=== PATIENT | male | born 1930 | race Asian ===

== ENCOUNTER 2016-11-30 13:56 | Inpatient (IN) | payer MEDICARE, MEDICAID ==
[~2016-11-30] VITALS: Ht 165.1 cm; Wt 67.1 kg
[2016-11-30 13:56] VITALS: BP 138/61
[2016-11-30 14:21] LABS: BASOPHILS % (AUTO) 1.2 % (0.0-2.0); EOSINOPHILS % (AUTO) 2.3 % (0.0-3.0); LYMPHOCYTES % (AUTO) 21.1 % (20.0-45.0); MEAN CORPUSCULAR HEMOGLOBIN 32.9 PG (27.0-31.0); MEAN CORPUSCULAR HGB CONC 33.8 G/DL (32.0-36.0); MEAN CORPUSCULAR VOLUME 97 FL (80-99); MEAN PLATELET VOLUME 6.2 FL (6.5-10.1); MONOCYTES % (AUTO) 8.7 % (1.0-10.0); NEUTROPHILS % (AUTO) 66.7 % (45.0-75.0); PLATELET COUNT 124 K/UL (150-450); RED BLOOD COUNT 3.68 M/UL (4.70-6.10); RED CELL DISTRIBUTION WIDTH 11.9 % (11.6-14.8); WHITE BLOOD COUNT 7.5 K/UL (4.8-10.8)
[2016-11-30] MEDS ORDERED: GLIPIZIDE5 G1 MC (14:26)
[2016-11-30] MEDS ORDERED: CREON DR 12,001 EACH PO (14:26)
[2016-11-30] MEDS ORDERED: VASCEPA0.5 GM PO (14:26)
[2016-11-30 14:33] LABS: INR 0.9 (0.9-1.1); PROTHROMBIN TIME 9.4 SEC (9.30-11.50)
[2016-11-30 14:37] LABS: ALANINE AMINOTRANSFERASE 11 U/L (3-41); ALBUMIN/GLOBULIN RATIO 1.4 (1.0-2.7); ANION GAP 16 (5-15); ASPARTATE AMINO TRANSFERASE 16 U/L (5-40); CALCIUM 8.9 mg/dL (8.6-10.2); CARBON DIOXIDE 24 mEQ/L (20-30); CHLORIDE 94 mEQ/L (98-107); CREATININE 1.3 mg/dL (0.7-1.2); HEMOLYSIS 2; POTASSIUM 4.4 mEQ/L (3.4-4.9); SODIUM 134 mEQ/L (135-145); TOTAL PROTEIN 7.3 g/dL (6.6-8.7); TROPONIN I < 0.30 ng/mL (<=0.30)
--- NOTE | 2016-11-30 14:44 | Diagnostic Imaging Report ---
Indications: Chest pain Technique: Portable AP chest Findings: Comparison: None Suboptimal inspiration limits evaluation. Linear densities and mildly increased interstitial markings in both mid to lower lung zones. Heart size, pulmonary vasculature within normal limits. Right no obvious pleural abnormalities. Aortic arch mildly calcified. IMPRESSION: Bibasal subsegmental atelectasis and increased interstitial markings, nonspecific, may all be compressive in nature. True interstitial disease, nonspecific, not excludable. Upright PA and lateral chest radiographs with better inspiratory effort and optimal technique recommended for more complete evaluation. Aortosclerosis
[2016-11-30] MEDS ORDERED: Tubing IV Cassette IV ONE ×2 (14:46→18:40)
[2016-11-30 14:48] LABS: CKMB 2.2 ng/mL (< 6.7)
[2016-11-30] MEDS ORDERED: cefTRIAXone 1 GM in NS 55 ML IVPB ONE (15:00)
[2016-11-30] MEDS ORDERED: NS 55 ML IV ONE (15:10)
[2016-11-30] MEDS ORDERED: Tubing IV Secondary IV ONE (15:10)
--- NOTE | 2016-11-30 15:12 | Emergency Room Report ---
History of Present Illness General Chief Complaint: Syncope Source: Patient, EMS Present Illness HPI This patient presents accompanied by his family. The daughter is the primary historian. The patient apparently has fallen twice today. There has not been a loss of consciousness. However, the second episode was witnessed by a neighbor and the history is poor. The patient has no specific complaints. The patient has a history of chronic back pain. He also complains of chronic dry mouth. The patient denies chest pain or shortness of breath. The patient denies abdominal pain. The patient denies fever or chills. Patient denies recent illness. Patient denies headache. Patient denies weakness. He has no other complaints. Allergies: Coded Allergies: No Known Allergies (Unverified , 11/30/16) Patient History Past Medical History: see triage record, DM, HTN, other - HLP Social History: Denies: alcohol use, drug use, smoking Reviewed Nursing Documentation: PMH: Agreed, PSxH: Agreed Nursing Documentation-PMH Past Medical History: No History, Except For Hx Diabetes: Yes Review of Systems All Other Systems: negative except mentioned in HPI Physical Exam Vital Signs Date Time Temp Pulse Resp B/P Pulse Ox O2 Delivery O2 Flow Rate FiO2 11/30/16 13:50 97.9 80 19 142/80 98 Room Air 11/30/16 13:56 2.0 Sp02 EP Interpretation: reviewed, normal General Appearance: no apparent distress, alert, GCS 15, non-toxic Head: normocephalic, atraumatic Eyes: bilateral eye PERRL, bilateral eye normal inspection ENT: hearing grossly normal, normal pharynx, no angioedema, normal voice, dry mucus membranes Neck: full range of motion, supple/symm/no masses Respiratory: chest non-tender, lungs clear, normal breath sounds, no respiratory distress, no retraction, no accessory muscle use, speaking full sentences Cardiovascular #1: regular rate, rhythm, no edema Gastrointestinal: normal bowel sounds, non tender, soft, non-distended, no guarding, no rebound Rectal: deferred Musculoskeletal: back normal, normal range of motion, non-tender Neurologic: alert, oriented x3, responsive, motor strength/tone normal, sensory intact, speech normal Psychiatric: mood/affect normal Skin: normal color, no rash, warm/dry, well hydrated Medical Decision Making Diagnostic Impression: Primary Impression: Pneumonia Additional Impression: Syncope ER Course This patient presents with 2 episodes of fall which could be syncope. The episodes are not well witnessed. Also, the patient is a poor historian. Regardless, the patient is also found to have right lobe opacity that could be a pneumonia. The patient was given broad-spectrum antibiotics here in the emergency department. He is also given IV fluids. Laboratory workup is reassuring and noncontributory other than a mild elevated creatinine. He also is found to have thrombocytopenia that is mild. This patient will be admitted for further evaluation and treatment I am concerned about the patient's age and 2 falls as I feel that he may be dangerous to go home. He is admitted for further evaluation and treatment. Labs Test 11/30/16 14:00 11/30/16 14:10 White Blood Count 7.5 K/UL (4.8-10.8) Red Blood Count 3.68 M/UL (4.70-6.10) Hemoglobin 12.1 G/DL (14.2-18.0) Hematocrit 35.8 % (42.0-52.0) Mean Corpuscular Volume 97 FL (80-99) Mean Corpuscular Hemoglobin 32.9 PG (27.0-31.0) Mean Corpuscular Hemoglobin Concent 33.8 G/DL (32.0-36.0) Red Cell Distribution Width 11.9 % (11.6-14.8) Platelet Count 124 K/UL (150-450) Mean Platelet Volume 6.2 FL (6.5-10.1) Neutrophils (%) (Auto) 66.7 % (45.0-75.0) Lymphocytes (%) (Auto) 21.1 % (20.0-45.0) Monocytes (%) (Auto) 8.7 % (1.0-10.0) Eosinophils (%) (Auto) 2.3 % (0.0-3.0) Basophils (%) (Auto) 1.2 % (0.0-2.0) Prothrombin Time 9.4 SEC (9.30-11.50) Prothromb Time International Ratio 0.9 (0.9-1.1) Activated Partial Thromboplast Time 26 SEC (23-33) Sodium Level 134 mEQ/L (135-145) Potassium Level 4.4 mEQ/L (3.4-4.9) Chloride Level 94 mEQ/L (98-107) Carbon Dioxide Level 24 mEQ/L (20-30) Anion Gap 16 (5-15) Blood Urea Nitrogen 10 mg/dL (7-23) Creatinine 1.3 mg/dL (0.7-1.2) Estimat Glomerular Filtration Rate mL/min (>60) Glucose Level 132 mg/dL (74-106) Calcium Level 8.9 mg/dL (8.6-10.2) Total Bilirubin 0.6 mg/dL (0.0-1.2) Aspartate Amino Transf (AST/SGOT) 16 U/L (5-40) Alanine Aminotransferase (ALT/SGPT) 11 U/L (3-41) Alkaline Phosphatase 96 U/L (40-129) Total Creatine Kinase 90 U/L (38-174) Creatine Kinase MB 2.2 ng/mL (< 6.7) Creatine Kinase MB Relative Index 2.4 Troponin I < 0.30 ng/mL (<=0.30) Total Protein 7.3 g/dL (6.6-8.7) Albumin 4.3 g/dL (3.5-5.2) Globulin 3.0 g/dL Albumin/Globulin Ratio 1.4 (1.0-2.7) EKG Diagnostic Results Rate: normal Rhythm: NSR ST Segments: no acute changes Rhythm Strip Diag. Results EP Interpretation: yes Rate: 90's Rhythm: NSR, no PVC's, no ectopy Chest X-Ray Diagnostic Results Chest X-Ray Ordered: Yes # of Views/Limited/Complete: 1 View Interpretation: no effusion, no pneumothorax, other Indication: Other Impression: Other - RLL opacity Date Electronically Signed: Nov 30, 2016 Time Electronically Signed: 15:08 Interpreting ER Physician: Dominik Last Vital Signs Date Time Temp Pulse Resp B/P Pulse Ox O2 Delivery O2 Flow Rate FiO2 11/30/16 13:56 90 16 138/61 96 Nasal Cannula 2.0 11/30/16 13:50 97.9 Disposition: ADMITTED INPATIENT Condition: Stable LADAN LOPEZ D.O. Nov 30, 2016 15:12
[2016-11-30 15:17] LABS: REFLEX LACTIC ACID YES OR NO YES
--- NOTE | 2016-11-30 15:20 | Diagnostic Imaging Report ---
Indications: Syncope, fall, head trauma, pain Technique: Continuous helical CT imaging of the brain was performed with nonionic exposure control on a Siemens sensation [address] scanner. Axial and coronal images were reconstructed at 5 mm slice thickness and interval. CTDI volume(s): 70 mGy Total DLP: 1404 mGy-cm Findings: Comparison: None Wedge-shaped, peripherally based area of abnormal low attenuation is present in the posterior lateral aspect of the right parietal lobe, extending from the ventricular margin of the brain surface. White matter is mostly involved with some fox matter involvement, some sparing. There is mild expected dilation of the underlying portion of right lateral ventricle. Small circumscribed focus of signal change/parenchymal loss is present in the midline of the dany. Similar lesion is suggested in the right thalamus. Confluent low attenuation is present in the bilateral periventricular white matter. Ventricles, cisterns, and sulci are diffusely prominent. No evidence of mass or hemorrhage, mass effect, midline shift, hydrocephalus, or increased intracranial pressure. Bone window images are unremarkable. Visualized paranasal sinuses and mastoid air cells are clear. 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 Lacunar infarcts dany, possibly also right thalamus, likely old Bilateral cerebral periventricular white matter low attenuation, nonspecific, likely chronic microvascular ischemic in nature Atrophy. The CT scanner at [facility] is accredited by the [employer] and the scans are performed using protocols designed to limit radiation exposure to as low as reasonably achievable to attain images of sufficient resolution adequate for diagnostic evaluation.
[2016-11-30 16:00] VITALS: BP 122/58
[2016-11-30 16:36] LABS: APPEARANCE,URINE CLEAR; KETONES,URINE NEGATIVE (NEGATIVE); LEUKOCYTE ESTERASE ,URINE 1+ (NEGATIVE); NITRITE,URINE NEGATIVE (NEGATIVE); PH,URINE 6 (4.5-8.0); PROTEIN,URINE NEGATIVE (NEGATIVE); UROBILINOGEN,URINE NORMAL MG/DL (0.0-1.0)
[2016-11-30 16:44] LABS: RBC,URINE 0-2 /HPF (0 - 0); WBC,URINE 0-2 /HPF (0 - 0)
[2016-11-30] MEDS ORDERED: Promethazine/Codeine 5ml UD ORAL PRN (17:00)
[2016-11-30] MEDS ORDERED: Nitroglycerin Subl 0.4mg tab (Bottle Of 25) SL PRN (17:00)
[2016-11-30] MEDS ORDERED: DuoNeb 0.5-3(2.5)mg/3ml neb HHN PRN (17:00)
[2016-11-30] MEDS ORDERED: Miralax 17gm pkt ORAL PRN (17:00)
[2016-11-30] MEDS ORDERED: Mylanta II UD 30ml ORAL PRN (17:00)
[2016-11-30 18:00] VITALS: BP 148/63
[2016-11-30] MEDS ORDERED: NS 1000ml 1,900 ML IVLG ONE (18:15)
[2016-11-30] MEDS ORDERED: NS 275 ML ONE (18:40)
[2016-11-30] MEDS ORDERED: Vancomycin 1gm inj IVPB ONE (18:40)
[2016-11-30] MEDS: Vancomycin 1gm/D5W 275ml IVPB SCH ×2 (18:43)
[2016-11-30 20:00] VITALS: BP 137/77
[2016-11-30] MEDS: NovoLOG Insulin Flexpen SUBQ SCH (21:00)
--- NOTE | 2016-11-30 22:10 | History and Physical ---
History of Present Illness General Date patient seen: Nov 30, 2016 Reason for Hospitalization: Syncope Present Illness HPI 86 year old male with hx of HTN, CM, CVA, dementia, presented with CC of falls twice today. There has not been a loss of consciousness. The patient has no specific complaints. The patient has a history of chronic back pain. He also complains of chronic dry mouth. The patient denies chest pain or shortness of breath. Pt is admitted to telemetry for acute encephalopathy to rule out arrhythmias and CVA. Allergies: Coded Allergies: No Known Allergies (Unverified , 11/30/16) Medication History Miscellaneous Medications Glipizide (Glipizide), Unknown Dose MC, (Reported) Icosapent Ethyl (Vascepa), Unknown Dose PO, (Reported) Lipase/Protease/Amylase (Creon Dr 12,000 Units Capsule), 1 EACH PO, (Reported) Patient History Healthcare decision maker Resuscitation status Advanced Directive on File Past Medical/Surgical History Past Medical/Surgical History: (1) History of CVA (cerebrovascular accident) (2) Diabetes Review of Systems Constitutional: Reports: malaise, weakness Musculoskeletal: Reports: back pain All Other Systems: negative except mentioned in HPI Physical Exam General Appearance: cachetic Lines, tubes and drains: peripheral HEENT: normocephalic, anicteric Neck: non-tender, normal alignment Respiratory/Chest: chest wall non-tender, lungs clear Cardiovascular/Chest: normal peripheral pulses, normal rate Abdomen: normal bowel sounds, non tender Genitourinary/Rectal: normal genital exam Extremities: normal range of motion 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, no motor/sensory deficits Last 24 Hour Vital Signs Date Time Temp Pulse Resp B/P Pulse Ox O2 Delivery O2 Flow Rate FiO2 11/30/16 20:00 97.5 75 18 137/77 98 Nasal Cannula 2.0 11/30/16 19:39 97.9 71 16 148/63 100 Nasal Cannula 2.0 28 11/30/16 18:14 76 16 100 Nasal Cannula 2.0 28 11/30/16 18:08 76 18 100 Nasal Cannula 2.0 28 11/30/16 18:08 76 18 Nasal Cannula 2.0 28 11/30/16 18:00 71 16 148/63 99 Nasal Cannula 2.0 11/30/16 16:00 80 16 122/58 95 Nasal Cannula 2.0 11/30/16 13:56 90 16 138/61 96 Nasal Cannula 2.0 11/30/16 13:50 97.9 80 19 142/80 98 Room Air Laboratory Tests Test 11/30/16 14:00 11/30/16 14:10 11/30/16 16:00 11/30/16 18:20 Lactic Acid Level 3.10 mmol/L (0.66-2.22) H 3.20 mmol/L (0.66-2.22) H White Blood Count 7.5 K/UL (4.8-10.8) Red Blood Count 3.68 M/UL (4.70-6.10) L Hemoglobin 12.1 G/DL (14.2-18.0) L Hematocrit 35.8 % (42.0-52.0) L Mean Corpuscular Volume 97 FL (80-99) Mean Corpuscular Hemoglobin 32.9 PG (27.0-31.0) H Mean Corpuscular Hemoglobin Concent 33.8 G/DL (32.0-36.0) Red Cell Distribution Width 11.9 % (11.6-14.8) Platelet Count 124 K/UL (150-450) L Mean Platelet Volume 6.2 FL (6.5-10.1) L Neutrophils (%) (Auto) 66.7 % (45.0-75.0) Lymphocytes (%) (Auto) 21.1 % (20.0-45.0) Monocytes (%) (Auto) 8.7 % (1.0-10.0) Eosinophils (%) (Auto) 2.3 % (0.0-3.0) Basophils (%) (Auto) 1.2 % (0.0-2.0) Prothrombin Time 9.4 SEC (9.30-11.50) Prothromb Time International Ratio 0.9 (0.9-1.1) Activated Partial Thromboplast Time 26 SEC (23-33) Sodium Level 134 mEQ/L (135-145) L Potassium Level 4.4 mEQ/L (3.4-4.9) Chloride Level 94 mEQ/L (98-107) L Carbon Dioxide Level 24 mEQ/L (20-30) Anion Gap 16 (5-15) H Blood Urea Nitrogen 10 mg/dL (7-23) Creatinine 1.3 mg/dL (0.7-1.2) H Estimat Glomerular Filtration Rate mL/min (>60) Glucose Level 132 mg/dL (74-106) H Calcium Level 8.9 mg/dL (8.6-10.2) Total Bilirubin 0.6 mg/dL (0.0-1.2) Aspartate Amino Transf (AST/SGOT) 16 U/L (5-40) Alanine Aminotransferase (ALT/SGPT) 11 U/L (3-41) Alkaline Phosphatase 96 U/L (40-129) Total Creatine Kinase 90 U/L (38-174) Creatine Kinase MB 2.2 ng/mL (< 6.7) Creatine Kinase MB Relative Index 2.4 Troponin I < 0.30 ng/mL (<=0.30) Total Protein 7.3 g/dL (6.6-8.7) Albumin 4.3 g/dL (3.5-5.2) Globulin 3.0 g/dL Albumin/Globulin Ratio 1.4 (1.0-2.7) Urine Color Pale yellow Urine Appearance Clear Urine pH 6 (4.5-8.0) Urine Specific [place] 1.010 (1.005-1.035) Urine Protein Negative (NEGATIVE) Urine Glucose (UA) Negative (NEGATIVE) Urine Ketones Negative (NEGATIVE) Urine Occult Blood Negative (NEGATIVE) Urine Nitrite Negative (NEGATIVE) Urine Bilirubin Negative (NEGATIVE) Urine Urobilinogen Normal MG/DL (0.0-1.0) Urine Leukocyte Esterase 1+ (NEGATIVE) H Urine RBC 0-2 /HPF (0 - 0) H Urine WBC 0-2 /HPF (0 - 0) Urine Squamous Epithelial Cells None /LPF (NONE/OCC) Urine Bacteria None /HPF (NONE) Height (Feet): 5 Height (Inches): 7.00 Weight (Pounds): 138 Medications Current Medications Medications (Trade) Dose Ordered Sig/Morgan Route PRN Reason Start Time Stop Time Status Last Admin Dose Admin Acetaminophen (Tylenol) 650 mg Q4H PRN ORAL fever 11/30/16 17:00 12/30/16 16:59 Al Hydroxide/Mg Hydroxide (Mylanta II) 30 ml Q6H PRN ORAL dyspepsia 11/30/16 17:00 12/30/16 16:59 Albuterol/ Ipratropium 3 ml 3 ml EVERY 4 HOURS PRN HHN Shortness of Breath 11/30/16 17:00 12/05/16 16:59 11/30/16 18:12 Cefepime HCl/ Dextrose (Maxipime/D5W) 55 ml @ 110 mls/hr Q24H IV 11/30/16 21:00 12/07/16 20:59 Dextrose STAT PRN IV Hypoglycemia 11/30/16 17:00 12/30/16 16:59 Heparin Sodium (Porcine) (Heparin 5000 units/ml) 5,000 units EVERY 12 HOURS SUBQ 11/30/16 21:00 12/30/16 20:59 Insulin Aspart (NovoLOG) BEFORE MEALS AND HS SUBQ 11/30/16 21:00 12/30/16 20:59 Nitroglycerin (Ntg) 0.4 mg Q5M PRN SL Prn Chest Pain 11/30/16 17:00 12/30/16 16:59 Ondansetron HCl (Zofran) 4 mg Q6H PRN IVP Nausea & Vomiting 11/30/16 17:00 12/30/16 16:59 Polyethylene Glycol (Miralax) 17 gm DAILYPRN PRN ORAL Constipation 11/30/16 17:00 12/30/16 16:59 Promethazine HCl/ Codeine (Phenergan with Codeine) 5 ml Q4H PRN ORAL For Cough 11/30/16 17:00 12/30/16 16:59 Temazepam (Restoril) 15 mg HSPRN PRN ORAL Insomnia 11/30/16 17:00 12/07/16 16:59 Vancomycin HCl (Vanco rx to dose) 1 ea DAILY PRN MISC Per rx protocol 11/30/16 17:00 12/30/16 16:59 Vancomycin HCl/ Dextrose (Vancomycin/D5W) 275 ml @ 183.708 mls/hr Q24H IVPB 11/30/16 18:00 12/05/16 17:59 11/30/16 18:43 Assessment/Plan Problem List: (1) Acute encephalopathy ICD Codes: G93.40 - Encephalopathy, unspecified SNOMED: 9222934 (2) Arrhythmia ICD Codes: I49.9 - Cardiac arrhythmia, unspecified SNOMED: 953650655 (3) Syncope ICD Codes: R55 - Syncope and collapse SNOMED: 379591099 (4) Diabetes ICD Codes: E11.9 - Type 2 diabetes mellitus without complications SNOMED: 28760611 (5) History of CVA (cerebrovascular accident) ICD Codes: Z86.73 - Personal history of transient ischemic attack (TIA), and cerebral infarction without residual deficits SNOMED: 943102870 Assessment/Plan telemetry monitoring pt/ot swallow evaluation close neuro f/u pain control echo doppler of carotid artery dvt prophylaxis JEEVAN NESS Nov 30, 2016 22:10
[2016-11-30] MEDS: Cefepime HCl 1 GM in D5W 55 ML IV SCH (22:24)
[2016-11-30] MEDS: Heparin 5000 units/ml inj SUBQ SCH (22:26)
[2016-12-01] VITALS: BP 122/66
[2016-12-01 04:01] VITALS: BP 116/64
[2016-12-01] MEDS: NovoLOG Insulin Flexpen SUBQ SCH ×4 (06:30→21:06)
[2016-12-01 08:08] LABS: BASOPHILS % (AUTO) 1.4 % (0.0-2.0); EOSINOPHILS % (AUTO) 2.8 % (0.0-3.0); MEAN CORPUSCULAR HEMOGLOBIN 32.8 PG (27.0-31.0); MEAN CORPUSCULAR HGB CONC 33.4 G/DL (32.0-36.0); MEAN CORPUSCULAR VOLUME 98 FL (80-99); MEAN PLATELET VOLUME 7.2 FL (6.5-10.1); MONOCYTES % (AUTO) 11.6 % (1.0-10.0); NEUTROPHILS % (AUTO) 59.3 % (45.0-75.0); PLATELET COUNT 119 K/UL (150-450); RED BLOOD COUNT 3.62 M/UL (4.70-6.10); RED CELL DISTRIBUTION WIDTH 12.1 % (11.6-14.8); WHITE BLOOD COUNT 5.6 K/UL (4.8-10.8)
[2016-12-01 08:23] VITALS: BP 111/57
[2016-12-01 08:24] LABS: ANION GAP 15 (5-15); CALCIUM 8.4 mg/dL (8.6-10.2); CARBON DIOXIDE 24 mEQ/L (20-30); CHLORIDE 105 mEQ/L (98-107); CREATININE 1.1 mg/dL (0.7-1.2); HEMOLYSIS 6; PHOSPHORUS 2.8 mg/dL (2.5-4.8); POTASSIUM 4.4 mEQ/L (3.4-4.9); SODIUM 144 mEQ/L (135-145)
[2016-12-01] MEDS: Heparin 5000 units/ml inj SUBQ SCH ×2 (08:44→21:00)
--- NOTE | 2016-12-01 11:33 | Pulmonology Progress Note ---
Assessment/Plan Problems: (1) Acute encephalopathy (2) Arrhythmia (3) Syncope (4) Diabetes (5) History of CVA (cerebrovascular accident) (6) Severe protein-calorie malnutrition Assessment/Plan swallow study noted check echo, carotid doppler pt/ot resume diet pain control anemia w/u ( ordered) Subjective ROS Limited/Unobtainable: No Constitutional: Reports: no symptoms HEENT: Repors: no symptoms Respiratory: Reports: no symptoms Allergies: Coded Allergies: No Known Allergies (Unverified , 11/30/16) Objective Last 24 Hour Vital Signs Date Time Temp Pulse Resp B/P Pulse Ox O2 Delivery O2 Flow Rate FiO2 12/01/16 08:23 97.3 65 18 111/57 98 Nasal Cannula 98.0 12/01/16 08:00 72 12/01/16 04:01 97.0 70 20 116/64 100 Nasal Cannula 2.0 12/01/16 04:00 65 12/01/16 00:00 69 12/01/16 00:00 96.9 70 18 122/66 99 Nasal Cannula 2.0 11/30/16 20:00 97.5 75 18 137/77 98 Nasal Cannula 2.0 11/30/16 19:39 97.9 71 16 148/63 100 Nasal Cannula 2.0 28 11/30/16 18:14 76 16 100 Nasal Cannula 2.0 28 11/30/16 18:08 76 18 100 Nasal Cannula 2.0 28 11/30/16 18:08 76 18 Nasal Cannula 2.0 28 11/30/16 18:00 71 16 148/63 99 Nasal Cannula 2.0 11/30/16 16:00 80 16 122/58 95 Nasal Cannula 2.0 11/30/16 13:56 90 16 138/61 96 Nasal Cannula 2.0 11/30/16 13:50 97.9 80 19 142/80 98 Room Air Intake and Output 11/30/16 12/01/16 19:00 07:00 Intake Total 1055 ml 55 ml Output Total 900 ml Balance 1055 ml -845 ml Intake Oral 0 ml IV Total 1055 ml 55 ml Output Urine Total 900 ml # Voids 4 General Appearance: cachetic HEENT: normocephalic, atraumatic Respiratory/Chest: chest wall non-tender, lungs clear Cardiovascular: normal peripheral pulses, normal rate Abdomen: normal bowel sounds, soft, non tender Genitourinary: normal external genitalia Extremities: no cyanosis Skin: no rash 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, no motor/sensory deficits Lymphatic: no neck adenopathy Laboratory Tests 11/30/16 14:00: Lactic Acid Level 3.10H 11/30/16 14:10: White Blood Count 7.5, Red Blood Count 3.68L, Hemoglobin 12.1L, Hematocrit 35.8L , Mean Corpuscular Volume 97, Mean Corpuscular Hemoglobin 32.9H, Mean Corpuscular Hemoglobin Concent 33.8, Red Cell Distribution Width 11.9, Platelet Count 124L, Mean Platelet Volume 6.2L, Neutrophils (%) (Auto) 66.7, Lymphocytes (%) (Auto) 21.1, Monocytes (%) (Auto) 8.7, Eosinophils (%) (Auto) 2.3, Basophils (%) (Auto) 1.2, Prothrombin Time 9.4, Prothromb Time International Ratio 0.9, Activated Partial Thromboplast Time 26, Sodium Level 134L, Potassium Level 4.4, Chloride Level 94L, Carbon Dioxide Level 24, Anion Gap 16H, Blood Urea Nitrogen 10, Creatinine 1.3H, Estimat Glomerular Filtration Rate , Glucose Level 132H, Calcium Level 8.9, Total Bilirubin 0.6, Aspartate Amino Transf (AST/ SGOT) 16, Alanine Aminotransferase (ALT/SGPT) 11, Alkaline Phosphatase 96, Total Creatine Kinase 90, Creatine Kinase MB 2.2, Creatine Kinase MB Relative Index 2.4, Troponin I < 0.30, Total Protein 7.3, Albumin 4.3, Globulin 3.0, Albumin/Globulin Ratio 1.4 11/30/16 16:00: Urine Color Pale yellow, Urine Appearance Clear, Urine pH 6, Urine Specific [place] 1.010, Urine Protein Negative, Urine Glucose (UA) Negative, Urine Ketones Negative, Urine Occult Blood Negative, Urine Nitrite Negative, Urine Bilirubin Negative, Urine Urobilinogen Normal, Urine Leukocyte Esterase 1+H, Urine RBC 0-2H, Urine WBC 0-2, Urine Squamous Epithelial Cells None, Urine Bacteria None 11/30/16 18:20: Lactic Acid Level 3.20H 12/01/16 06:50: White Blood Count 5.6, Red Blood Count 3.62L, Hemoglobin 11.9L, Hematocrit 35.5L , Mean Corpuscular Volume 98, Mean Corpuscular Hemoglobin 32.8H, Mean Corpuscular Hemoglobin Concent 33.4, Red Cell Distribution Width 12.1, Platelet Count 119L, Mean Platelet Volume 7.2, Neutrophils (%) (Auto) 59.3, Lymphocytes ( %) (Auto) 25.0, Monocytes (%) (Auto) 11.6H, Eosinophils (%) (Auto) 2.8, Basophils (%) (Auto) 1.4, Sodium Level 144#, Potassium Level 4.4, Chloride Level 105, Carbon Dioxide Level 24, Anion Gap 15, Blood Urea Nitrogen 10, Creatinine 1.1, Estimat Glomerular Filtration Rate , Glucose Level 100, Calcium Level 8.4L, Phosphorus Level 2.8, Albumin 3.6 Current Medications Medications (Trade) Dose Ordered Sig/Morgan Route PRN Reason Start Time Stop Time Status Last Admin Dose Admin Acetaminophen (Tylenol) 650 mg Q4H PRN ORAL fever 11/30/16 17:00 12/30/16 16:59 11/30/16 22:25 Al Hydroxide/Mg Hydroxide (Mylanta II) 30 ml Q6H PRN ORAL dyspepsia 11/30/16 17:00 12/30/16 16:59 Albuterol/ Ipratropium 3 ml 3 ml EVERY 4 HOURS PRN HHN Shortness of Breath 11/30/16 17:00 12/05/16 16:59 11/30/16 18:12 Cefepime HCl/ Dextrose (Maxipime/D5W) 55 ml @ 110 mls/hr Q24H IV 11/30/16 21:00 12/07/16 20:59 11/30/16 22:24 Dextrose STAT PRN IV Hypoglycemia 11/30/16 17:00 12/30/16 16:59 Heparin Sodium (Porcine) (Heparin 5000 units/ml) 5,000 units EVERY 12 HOURS SUBQ 11/30/16 21:00 12/30/16 20:59 11/30/16 22:26 Insulin Aspart (NovoLOG) BEFORE MEALS AND HS SUBQ 11/30/16 21:00 12/30/16 20:59 Nitroglycerin (Ntg) 0.4 mg Q5M PRN SL Prn Chest Pain 11/30/16 17:00 12/30/16 16:59 Ondansetron HCl (Zofran) 4 mg Q6H PRN IVP Nausea & Vomiting 11/30/16 17:00 12/30/16 16:59 Polyethylene Glycol (Miralax) 17 gm DAILYPRN PRN ORAL Constipation 11/30/16 17:00 12/30/16 16:59 Promethazine HCl/ Codeine (Phenergan with Codeine) 5 ml Q4H PRN ORAL For Cough 11/30/16 17:00 12/30/16 16:59 Temazepam (Restoril) 15 mg HSPRN PRN ORAL Insomnia 11/30/16 17:00 12/07/16 16:59 Vancomycin HCl (Vanco rx to dose) 1 ea DAILY PRN MISC Per rx protocol 11/30/16 17:00 12/30/16 16:59 Vancomycin HCl/ Dextrose (Vancomycin/D5W) 275 ml @ 183.708 mls/hr Q24H IVPB 11/30/16 18:00 12/05/16 17:59 11/30/16 18:43 JEEVAN NESS Dec 01, 2016 11:33
[2016-12-01 11:53] VITALS: BP 119/66
--- NOTE | 2016-12-01 12:53 | Consultation ---
Consult Note Consult Note ID Dic# [id number] KAROLINA LEAVITT M.D. Dec 01, 2016 12:53
--- NOTE | 2016-12-01 15:06 | Cardiology Report ---
APPROVED REPORT EKG Measurement Heart [id number] Normal sinus rhythm Left axis deviation Abnormal ECG
[2016-12-01 15:59] VITALS: BP 126/68
[2016-12-01] MEDS: Vancomycin 1gm/D5W 275ml IVPB SCH ×2 (17:15)
[2016-12-01 20:00] VITALS: BP 139/79
[2016-12-01] MEDS: Cefepime HCl 1 GM in D5W 55 ML IV SCH (21:05)
--- NOTE | 2016-12-01 21:38 | Cardiology Progress Note ---
Assessment/Plan Assessment/Plan The patient is seen and examined, full consult note is dictated. Objective Last 24 Hour Vital Signs Date Time Temp Pulse Resp B/P Pulse Ox O2 Delivery O2 Flow Rate FiO2 12/01/16 20:00 97.7 80 20 139/79 99 Room Air 12/01/16 16:00 78 12/01/16 15:59 97.5 75 18 126/68 99 Room Air 12/01/16 12:00 68 12/01/16 11:53 97.7 72 18 119/66 99 Nasal Cannula 2.0 12/01/16 08:23 97.3 65 18 111/57 98 Nasal Cannula 98.0 12/01/16 08:00 72 12/01/16 04:01 97.0 70 20 116/64 100 Nasal Cannula 2.0 12/01/16 04:00 65 12/01/16 00:00 69 12/01/16 00:00 96.9 70 18 122/66 99 Nasal Cannula 2.0 Intake and Output 11/30/16 12/01/16 19:00 07:00 Intake Total 1055 ml 55 ml Output Total 900 ml Balance 1055 ml -845 ml Intake Oral 0 ml IV Total 1055 ml 55 ml Output Urine Total 900 ml # Voids 4 Laboratory Tests Test 12/01/16 06:50 White Blood Count 5.6 K/UL (4.8-10.8) Red Blood Count 3.62 M/UL (4.70-6.10) L Hemoglobin 11.9 G/DL (14.2-18.0) L Hematocrit 35.5 % (42.0-52.0) L Mean Corpuscular Volume 98 FL (80-99) Mean Corpuscular Hemoglobin 32.8 PG (27.0-31.0) H Mean Corpuscular Hemoglobin Concent 33.4 G/DL (32.0-36.0) Red Cell Distribution Width 12.1 % (11.6-14.8) Platelet Count 119 K/UL (150-450) L Mean Platelet Volume 7.2 FL (6.5-10.1) Neutrophils (%) (Auto) 59.3 % (45.0-75.0) Lymphocytes (%) (Auto) 25.0 % (20.0-45.0) Monocytes (%) (Auto) 11.6 % (1.0-10.0) H Eosinophils (%) (Auto) 2.8 % (0.0-3.0) Basophils (%) (Auto) 1.4 % (0.0-2.0) Sodium Level 144 mEQ/L (135-145) # Potassium Level 4.4 mEQ/L (3.4-4.9) Chloride Level 105 mEQ/L (98-107) Carbon Dioxide Level 24 mEQ/L (20-30) Anion Gap 15 (5-15) Blood Urea Nitrogen 10 mg/dL (7-23) Creatinine 1.1 mg/dL (0.7-1.2) Estimat Glomerular Filtration Rate mL/min (>60) Glucose Level 100 mg/dL (74-106) Calcium Level 8.4 mg/dL (8.6-10.2) L Phosphorus Level 2.8 mg/dL (2.5-4.8) Albumin 3.6 g/dL (3.5-5.2) DAT HERNANDEZ Dec 01, 2016 21:38
--- NOTE | 2016-12-01 23:00 | Consultation ---
DATE OF CONSULTATION: 12/01/2016 NEUROLOGICAL CONSULTATION CONSULTING PHYSICIAN: Alvino Bernard M.D. REFERRING PHYSICIAN: Abeba Hobson M.D. HISTORY OF PRESENT ILLNESS: This is an 86-year-old man, seen in neurological consultation to evaluate episode of recurrent falls. According to the patient, he has a chronic low back pain, but progressed last week. He was using in the past cane, but in the last couple of days, he was not using cane and on one occasion, as he was ambulating, his legs buckled up and he fell down without any loss of consciousness and without associated symptoms. No chest pain. No palpitations. The patient was brought to this facility being described that he had actually had two falls without loss of consciousness and was admitted for assessment of possible arrhythmia or stroke. His vital signs on admission were stable. Blood pressure 137/77 and temperature 97.5 degrees. Laboratory work was obtained. Mild anemia. Hemoglobin 12.1 and hematocrit 35.6. Coagulation panel was normal. Urinalysis was unremarkable. Chemistry panel revealed elevated lactic acid of 3.10, chloride down to 94, anion gap of 16, creatinine 1.3, and blood sugar 132. Imaging studies included CAT scan of the brain without contrast, which revealed a wedge-shaped attenuation in the posterior lateral aspect of right parietal lobe extending from ventricular margin, mild dilation of underlying lateral ventricle, parenchymal loss in the midline of dany suggestive as well as right thalamus, diffusely dilated ventricles, and bilateral periventricular white matter changes. There is no evidence of acute injury noted, but right parietal infarct could have been subacute to chronic in the age, multiple lacunar strokes of old. His chest x-ray revealed bibasilar subsegmental atelectasis, nonspecific. Following admission to present, he remained stable. PAST MEDICAL HISTORY: The patient has history of diabetes, benign prostatic hypertrophy, and hypertension. MEDICATIONS: His treatment included glipizide, , and Creon. ALLERGIES: None reported. SOCIAL HISTORY: He is single. Lives alone in apartment. Denies alcohol or drug abuse. Nonsmoker. FAMILY HISTORY: Noncontributory. REVIEW OF SYSTEMS: Constant discomfort in his low back region especially when he is lying down, weakness in both lower extremities, using cane for ambulation, but denies headache and dizziness. No visual or hearing abnormalities. Denies currently any chest pain, palpitations, or respiratory problems. PHYSICAL EXAMINATION: GENERAL: This is a well-developed and well-nourished elderly man, not in acute distress, lying comfortably in bed, somewhat uncomfortable, changing position frequently, and complaining of low back discomfort. The patient now informs me that he is scheduled now for MRI of lumbar spine by his family physician. VITAL SIGNS: Now stable. He is afebrile. HEENT: Head, normocephalic. No evidence of trauma. Eyes, ears, and throat are clear. NECK: Supple. No meningeal signs. MUSCULOSKELETAL EXAMINATION: Unremarkable. There are no deformities. There is no percussion tenderness in the cervical dorsal lumbar spine. Straight leg raising test negative. EXTREMITIES: Upper and lower extremities without clubbing, cyanosis, or edema. Peripheral pulses 1+ symmetric. MENTAL STATUS: The patient is alert and oriented x3. Poor historian, but speech is fluent. Speaks predominantly Irish. The history was obtained with the help of Irish-speaking nursing staff. The patient was able to follow commands. He was complaining that everyone looks for his heart problems while his issue is low back. CRANIAL NERVE II: Pupils both responding to light and accommodation. Extraocular movement intact. No nystagmus. CRANIAL NERVE V: Normal corneal responses. CRANIAL NERVE VII: No facial asymmetry. CRANIAL NERVE VIII: Normal hearing. CRANIAL NERVES IX THROUGH XII: Tongue is in midline. Symmetric palate elevation. MOTOR EXAMINATION: Normal muscle tone. Strength 5/5 in all extremities. No involuntary movement. Deep tendon reflexes 1+ symmetric with downgoing toes on both sides. SENSORY EXAM: Normal to pinprick and light touch. GAIT: Slow, somewhat wobbly with turns. IMPRESSION: 1. History of recurrent mechanical fall. Rule out syncope. 2. History of subacute right parietal ischemic stroke. 3. Extensive ischemic cerebrovascular disease. 4. Multiple lacunar strokes, old. 5. Abnormal gait, probably contributed by old lacunar strokes and low back pain. 6. Chronic low back pain. Rule out lumbar spinal stenosis. RECOMMENDATIONS: 1. The patient is scheduled for MRI of lumbosacral spine as outpatient. 2. The patient to complete his cardiac assessment. 3. Start on aspirin 81 mg, start on statins, and have a trial of nonsteroidal agents for lumbar spine pain, which will be further worked up as outpatient. Thank you for allowing me to see this interesting patient in neurological consultation. Alvino Kelin Bernard DR: TOMAS JOB#: [id number] CC:
--- NOTE | 2016-12-01 23:15 | Consultation ---
DATE OF CONSULTATION: INFECTIOUS DISEASE CONSULTATION: REFERRING PHYSICIAN: Abeba Hobson M.D. REASON FOR CONSULTATION: Evaluation of patient for pneumonia. HISTORY OF PRESENT ILLNESS: The patient is an 86-year-old male with multiple medical problems was admitted to this medical center after the patient had a syncopal episode. concerned for possible sepsis . The patient is on IV antibiotics. Infectious Disease consultation has been requested for further evaluation of the patient's for possible sepsis and need for antibiotic treatment. PAST MEDICAL HISTORY: 1. History of hypertension. 2. History of BPH. 3. History of diabetes. 4. History of CVA. 5. Cardiomyopathy. ALLERGIES: No known drug allergies. SOCIAL HISTORY: No history of drug abuse. FAMILY HISTORY: Not contributing. REVIEW OF SYSTEMS: Limited information was obtained as mentioned above. PHYSICAL EXAMINATION: VITAL SIGNS: Temperature is 97.1 degrees, blood pressure ____/68, pulse 86, and respiratory rate 18. HEENT: Mild pale conjunctivae. No icterus. NECK: No lymphadenopathy. CHEST: Clear. HEART: S1 and S2. ABDOMEN: Soft . EXTREMITIES: No cyanosis. NEUROLOGIC: Awake. LABORATORY AND DIAGNOSTIC DATA: WBC 5.6, hemoglobin 11.9, and platelets 119,000. UA unremarkable. BUN 10 and creatinine 1.1. Lactic acid 3.2. Liver function test unremarkable. Chest x-ray marking nonspecific. Head CT, no evidence of acute process. The patient has history of old CVA. ASSESSMENT: The patient is an 86-year-old male who came with syncopal episode. The patient was found to have lactic acidosis. Based on the exam, there is no evidence of infectious process, however, lactic acidosis is concerning. The patient may benefit from empiric antibiotics. We will get further information from the cultures. PLAN: 1. We will continue the patient on vancomycin and cefepime day #1. 2. Monitor CBC. 3. Monitor BMP. 4. Monitor cultures (sputum, urine, and blood). 5. Monitor chest x-ray. 6. Based on the patient's clinical course and labs, we will do further recommendation. 7. If the patient stays stable, we may stop antibiotics soon. Thank you, Dr. Hobson, for allowing me to participate in the care of this patient. I will follow the patient with you during this hospitalization. Allan Null M.D. DR: Sakshi JOB#: [id number] CC:
[2016-12-02] VITALS: BP 148/75
--- NOTE | 2016-12-02 01:00 | Consultation ---
DATE OF CONSULTATION: 12/01/2016 CARDIOLOGY CONSULTATION REFERRING PHYSICIAN: Abeba Hobson M.D. REASON FOR CONSULTATION: Management of syncope. HISTORY OF PRESENT ILLNESS: The patient is a very unfortunate 86-year-old gentleman, who was brought in by daughter for evaluation and management of two consecutive falls. Apparently, the first fall was a mechanical fall and the second one is questionable and doubtful for syncope. The patient on the time of arrival to this hospital did not have any chest pain or shortness of breath. However, obtaining the history from the patient's daughter was extremely difficult. The patient was admitted to telemetry for further evaluation and management of syncope. His initial blood pressure in the emergency room was 142/80 mmHg and heart rate of 80. A 12-lead electrocardiogram was significant for sinus rhythm with no ST and T-wave abnormalities. PAST MEDICAL HISTORY: Includes diabetes mellitus, hypertension, and hyperlipidemia. PAST SURGICAL HISTORY: None. ALLERGIES: No known drug allergies. MEDICATIONS: List of medication includes glipizide 5 mg p.o. daily, lisinopril four capsules p.o. daily, and Creon 12,000 units 1 tablet p.o. daily. It is not clear whether these are all the patient's medications. FAMILY HISTORY: No premature coronary artery disease in first-degree relatives. SOCIAL HISTORY: There is no history of tobacco, alcohol, or illicit drug use. REVIEW OF SYSTEMS: HEENT: Denies any headache, diplopia, or blurred vision. Constitutional: Denies any fever, chills, night sweats, or weight loss. Cardiovascular: Denies any chest pain or shortness of breath. Denies any PND, orthopnea, or leg swelling. There is possible unwitnessed syncope. Pulmonary: Denies any cough, hemoptysis, or wheezing. Gastrointestinal: Denies any nausea, vomiting, diarrhea, constipation, abdominal pain, or GI bleed. Genitourinary: Denies any hematuria, dysuria, or incontinence. Neurologic: Denies any motor dysfunction, sensory deficit, or altered speech. Musculoskeletal: There is complaints of chronic back pain. PHYSICAL EXAMINATION: VITAL SIGNS: Blood pressure on arrival to the hospital was 142/80, respirations of 19, pulse of 80, temperature 97.9 degrees Fahrenheit, and O2 saturation 98% on room air. GENERAL: The patient is a very unfortunate 86-year-old gentleman, who is not verbally communicating due to language barrier. HEENT: Atraumatic and normocephalic. Anicteric. Pupils are equal, round, and reactive to light and accommodation. Extraocular muscles intact. Dry mucosal membranes. NECK: JVP is less than 5 cm. No carotid bruits. Carotid upstrokes 2+ bilaterally. CARDIOVASCULAR: Normal S1 and S2. Regular rate and rhythm. No murmurs, gallops, or rubs. PMI is at fourth intercoastal space in the midclavicular line. LUNGS: Clear to auscultation bilaterally. ABDOMEN: Soft, nontender, and nondistended. No hepatosplenomegaly. Positive bowel sounds. EXTREMITIES: No evidence of edema, clubbing, or cyanosis. LABORATORY AND DIAGNOSTIC FINDINGS: WBC was 7.5, hemoglobin 12.1, hematocrit 35.8, and platelet counts 124,000. Sodium was 134, potassium 4.4, chloride 94, bicarbonate 24, BUN 10, creatinine 1.3, and glucose is 132. Calcium is 8.9. Troponin I is less than 0.3. INR is 0.8. A 12-lead electrocardiogram shows sinus rhythm heart rate of 91 with left axis deviation, no ectopy and no evidence of ST and T-wave abnormalities. CT of the head showed no evidence of acute injury or other acute intracranial pathology. However, there is right parietal infarct late subacute to chronic in age and lacunar infarct in the dany and also right thalamus likely old and bilateral cerebral periventricular white matter low attenuation, nonspecific changes likely chronic microvascular ischemic changes. Chest x-ray shows bibasilar subsegmental atelectasis and increased interstitial markings. ASSESSMENT AND PLAN: This is a very unfortunate 86-year-old gentleman seen in Cardiology consultation at request of Dr. Hobson. 1. Possible unwitnessed syncope. The patient had two episodes of fall consecutively. We will like to obtain carotid ultrasound and orthostatic changes in case of hypovolemia. A 2D echocardiography in this patient also for LV systolic and diastolic function. 2. We will continue to monitor his rhythm throughout his stay to rule out cardiac arrhythmia. 3. Further therapeutic decisions and diagnoses will based on the findings from the above studies. In the meantime, the patient will be kept well hydrated. 4. History of diabetes mellitus. We would like to also rule out autonomic neuropathy in this patient, tight blood sugar control with hemoglobin A1c goal at 6.5 and below. 5. History of hypertension. I would avoid diuretics in this patient. Beta-hailey would be the main tovar of therapy if blood pressure is an issue. It appears that blood pressure is currently well controlled with diet only. 6. History of hyperlipidemia. We will obtain fasting lipid panel in a.m. I would like to thank, Dr. Hobson for allowing me to participate in the care of this patient. Mane Bustamante M.D. DR: DIVYA JOB#: [id number] CC:
[2016-12-02 04:00] VITALS: BP 129/60
[2016-12-02] MEDS: NovoLOG Insulin Flexpen SUBQ SCH ×2 (06:30→11:29)
[2016-12-02 08:03] LABS: BASOPHILS % (AUTO) 0.9 % (0.0-2.0); EOSINOPHILS % (AUTO) 2.4 % (0.0-3.0); LYMPHOCYTES % (AUTO) 21.1 % (20.0-45.0); MEAN CORPUSCULAR HEMOGLOBIN 33.1 PG (27.0-31.0); MEAN CORPUSCULAR HGB CONC 34.5 G/DL (32.0-36.0); MEAN CORPUSCULAR VOLUME 96 FL (80-99); MEAN PLATELET VOLUME 6.9 FL (6.5-10.1); MONOCYTES % (AUTO) 8.7 % (1.0-10.0); PLATELET COUNT 143 K/UL (150-450); RED BLOOD COUNT 4.04 M/UL (4.70-6.10); WHITE BLOOD COUNT 7.1 K/UL (4.8-10.8)
[2016-12-02 08:18] LABS: INR 0.9 (0.9-1.1); PROTHROMBIN TIME 9.6 SEC (9.30-11.50)
[2016-12-02 08:36] VITALS: BP 138/71
[2016-12-02] MEDS: Heparin 5000 units/ml inj SUBQ SCH (09:00)
[2016-12-02 09:08] LABS: ERYTHROCYTE SEDIMENTATION RATE 56 MM/HR (0-30)
[2016-12-02 09:09] LABS: PATH BLOOD SMEAR/OMC SENT TO PATHOLOGIST
[2016-12-02 10:40] LABS: RETICULOCYTE COUNT 0.9 % (0.0-2.0)
[2016-12-02 11:50] VITALS: BP 120/57
--- NOTE | 2016-12-02 12:25 | Infectious Diseases Prog Note ---
Assessment/Plan Assessment/Plan The patient is an 86-year-old male who came with lactic acidosis. ? Sepsis SP syncopal episode History of hypertension History of BPH History of diabetes History of CVA Cardiomyopathy PLAN: Cont vancomycin and cefepime day # 2 , may stop AB Rx in AM if stable Monitor CBC Monitor BMP Monitor cultures (sputum, urine, and blood) Monitor chest x-ray Subjective Constitutional: Denies: anorexia, chills, drenching sweats, fatigue, fever, no symptoms, other Allergies: Coded Allergies: No Known Allergies (Unverified , 11/30/16) Objective Vital Signs Last 24 Hour Vital Signs Date Time Temp Pulse Resp B/P Pulse Ox O2 Delivery O2 Flow Rate FiO2 12/02/16 12:00 90 12/02/16 11:55 84 12/02/16 11:50 75 12/02/16 11:50 97.3 75 18 120/57 100 Nasal Cannula 2.0 12/02/16 08:36 97.0 87 18 138/71 96 Nasal Cannula 2.0 12/02/16 08:00 85 12/02/16 04:00 99 12/02/16 04:00 81 85 88 12/02/16 04:00 97.7 78 19 129/60 98 Nasal Cannula 2.0 12/02/16 00:00 97.4 80 20 148/75 98 Nasal Cannula 2.0 12/02/16 00:00 76 12/01/16 20:00 86 12/01/16 20:00 97.7 80 20 139/79 99 Room Air 12/01/16 16:00 78 12/01/16 15:59 97.5 75 18 126/68 99 Room Air Height (Feet): 5 Height (Inches): 5.00 Weight (Pounds): 148 Respiratory/Chest: chest wall non-tender, respiratory distress Cardiovascular: no gallop/murmur Abdomen: no scars Microbiology Date/Time Source Procedure Growth Status 11/30/16 15:10 Blood Blood Culture - Preliminary NO GROWTH AFTER 24 HOURS Resulted 11/30/16 15:00 Blood Blood Culture - Preliminary NO GROWTH AFTER 24 HOURS Resulted 12/01/16 13:00 Sputum Gram Stain - Final Resulted 12/01/16 13:00 Sputum Sputum Culture - Preliminary Resulted 12/01/16 18:50 Urine,Clean Catch Urine Culture - Preliminary NO GROWTH Resulted Laboratory Tests Test 12/02/16 06:50 White Blood Count 7.1 K/UL (4.8-10.8) Red Blood Count 4.04 M/UL (4.70-6.10) L Hemoglobin 13.4 G/DL (14.2-18.0) L Hematocrit 38.9 % (42.0-52.0) L Mean Corpuscular Volume 96 FL (80-99) Mean Corpuscular Hemoglobin 33.1 PG (27.0-31.0) H Mean Corpuscular Hemoglobin Concent 34.5 G/DL (32.0-36.0) Red Cell Distribution Width 12.0 % (11.6-14.8) Platelet Count 143 K/UL (150-450) L Mean Platelet Volume 6.9 FL (6.5-10.1) Neutrophils (%) (Auto) 67.0 % (45.0-75.0) Lymphocytes (%) (Auto) 21.1 % (20.0-45.0) Monocytes (%) (Auto) 8.7 % (1.0-10.0) Eosinophils (%) (Auto) 2.4 % (0.0-3.0) Basophils (%) (Auto) 0.9 % (0.0-2.0) Erythrocyte Sedimentation Rate 56 MM/HR (0-30) H Reticulocyte Count 0.9 % (0.0-2.0) Prothrombin Time 9.6 SEC (9.30-11.50) Prothromb Time International Ratio 0.9 (0.9-1.1) Activated Partial Thromboplast Time 28 SEC (23-33) Iron Level 104 ug/dL (59-158) Total Iron Binding Capacity 241 ug/dL (250-400) L Percent Iron Saturation 43 % (15-50) Unsaturated Iron Binding 137 ug/dL (112-346) Lactate Dehydrogenase 229 U/L (135-230) Carcinoembryonic Antigen 2.5 ng/mL Vitamin B12 Level 188 pg/mL (211-946) L Folate Pending Current Medications Medications (Trade) Dose Ordered Sig/Morgan Route PRN Reason Start Time Stop Time Status Last Admin Dose Admin Acetaminophen (Tylenol) 650 mg Q4H PRN ORAL Mild Pain/Temp > 100.5 12/01/16 15:30 12/31/16 15:29 Al Hydroxide/Mg Hydroxide (Mylanta II) 30 ml Q6H PRN ORAL dyspepsia 11/30/16 17:00 12/30/16 16:59 12/01/16 19:53 Albuterol/ Ipratropium 3 ml 3 ml EVERY 4 HOURS PRN HHN Shortness of Breath 11/30/16 17:00 12/05/16 16:59 11/30/16 18:12 Cefepime HCl/ Dextrose (Maxipime/D5W) 55 ml @ 110 mls/hr Q24H IV 11/30/16 21:00 12/07/16 20:59 12/01/16 21:05 Dextrose STAT PRN IV Hypoglycemia 11/30/16 17:00 12/30/16 16:59 Heparin Sodium (Porcine) (Heparin 5000 units/ml) 5,000 units EVERY 12 HOURS SUBQ 11/30/16 21:00 12/30/16 20:59 11/30/16 22:26 Insulin Aspart (NovoLOG) BEFORE MEALS AND HS SUBQ 11/30/16 21:00 12/30/16 20:59 12/02/16 11:29 Nitroglycerin (Ntg) 0.4 mg Q5M PRN SL Prn Chest Pain 11/30/16 17:00 12/30/16 16:59 Ondansetron HCl (Zofran) 4 mg Q6H PRN IVP Nausea & Vomiting 11/30/16 17:00 12/30/16 16:59 Polyethylene Glycol (Miralax) 17 gm DAILYPRN PRN ORAL Constipation 11/30/16 17:00 12/30/16 16:59 Promethazine HCl/ Codeine (Phenergan with Codeine) 5 ml Q4H PRN ORAL For Cough 11/30/16 17:00 12/30/16 16:59 Temazepam (Restoril) 15 mg HSPRN PRN ORAL Insomnia 11/30/16 17:00 12/07/16 16:59 Vancomycin HCl (Vanco rx to dose) 1 ea DAILY PRN MISC Per rx protocol 11/30/16 17:00 12/30/16 16:59 Vancomycin HCl/ Dextrose (Vancomycin/D5W) 275 ml @ 183.708 mls/hr Q24H IVPB 11/30/16 18:00 12/05/16 17:59 12/01/16 17:15 KAROLINA LEAVITT M.D. Dec 02, 2016 12:25
--- NOTE | 2016-12-02 13:29 | Pulmonology Progress Note ---
Assessment/Plan Problems: (1) Acute encephalopathy (2) Arrhythmia (3) Syncope (4) Diabetes (5) History of CVA (cerebrovascular accident) (6) Severe protein-calorie malnutrition (7) Debility Assessment/Plan check echo, carotid doppler ( still pending) incentive spirometry pt/ot resume diet pain control anemia w/u ( ordered) social service for home safety and maybe placement Subjective ROS Limited/Unobtainable: No Constitutional: Reports: no symptoms HEENT: Repors: no symptoms Respiratory: Reports: no symptoms Allergies: Coded Allergies: No Known Allergies (Unverified , 11/30/16) Objective Last 24 Hour Vital Signs Date Time Temp Pulse Resp B/P Pulse Ox O2 Delivery O2 Flow Rate FiO2 12/02/16 12:00 90 12/02/16 11:55 84 12/02/16 11:50 75 12/02/16 11:50 97.3 75 18 120/57 100 Nasal Cannula 2.0 12/02/16 08:36 97.0 87 18 138/71 96 Nasal Cannula 2.0 12/02/16 08:00 85 12/02/16 04:00 99 12/02/16 04:00 81 85 88 12/02/16 04:00 97.7 78 19 129/60 98 Nasal Cannula 2.0 12/02/16 00:00 97.4 80 20 148/75 98 Nasal Cannula 2.0 12/02/16 00:00 76 12/01/16 20:00 86 12/01/16 20:00 97.7 80 20 139/79 99 Room Air 12/01/16 16:00 78 12/01/16 15:59 97.5 75 18 126/68 99 Room Air Intake and Output 12/01/16 12/02/16 19:00 07:00 Intake Total 875.000 ml Output Total 300 ml 700 ml Balance 575.000 ml -700 ml Intake Oral 600 ml IV Total 275.000 ml Output Urine Total 300 ml 700 ml # Voids 3 General Appearance: cachetic HEENT: normocephalic, anicteric Respiratory/Chest: chest wall non-tender, normal breath sounds Cardiovascular: normal peripheral pulses, normal rate Abdomen: normal bowel sounds, no organomegaly Genitourinary: normal external genitalia Extremities: no cyanosis Skin: no rash Microbiology Date/Time Source Procedure Growth Status 11/30/16 15:10 Blood Blood Culture - Preliminary NO GROWTH AFTER 24 HOURS Resulted 11/30/16 15:00 Blood Blood Culture - Preliminary NO GROWTH AFTER 24 HOURS Resulted 12/01/16 13:00 Sputum Gram Stain - Final Resulted 12/01/16 13:00 Sputum Sputum Culture - Preliminary Resulted 12/01/16 18:50 Urine,Clean Catch Urine Culture - Preliminary NO GROWTH Resulted Laboratory Tests 12/02/16 06:50: White Blood Count 7.1, Red Blood Count 4.04L, Hemoglobin 13.4L, Hematocrit 38.9L , Mean Corpuscular Volume 96, Mean Corpuscular Hemoglobin 33.1H, Mean Corpuscular Hemoglobin Concent 34.5, Red Cell Distribution Width 12.0, Platelet Count 143L, Mean Platelet Volume 6.9, Neutrophils (%) (Auto) 67.0, Lymphocytes ( %) (Auto) 21.1, Monocytes (%) (Auto) 8.7, Eosinophils (%) (Auto) 2.4, Basophils (%) (Auto) 0.9, Erythrocyte Sedimentation Rate 56H, Reticulocyte Count 0.9, Prothrombin Time 9.6, Prothromb Time International Ratio 0.9, Activated Partial Thromboplast Time 28, Iron Level 104, Total Iron Binding Capacity 241L, Percent Iron Saturation 43, Unsaturated Iron Binding 137, Lactate Dehydrogenase 229, Carcinoembryonic Antigen 2.5, Vitamin B12 Level 188L, Folate [Pending] Current Medications Medications (Trade) Dose Ordered Sig/Morgan Route PRN Reason Start Time Stop Time Status Last Admin Dose Admin Acetaminophen (Tylenol) 650 mg Q4H PRN ORAL Mild Pain/Temp > 100.5 12/01/16 15:30 12/31/16 15:29 Al Hydroxide/Mg Hydroxide (Mylanta II) 30 ml Q6H PRN ORAL dyspepsia 11/30/16 17:00 12/30/16 16:59 12/01/16 19:53 Albuterol/ Ipratropium 3 ml 3 ml EVERY 4 HOURS PRN HHN Shortness of Breath 11/30/16 17:00 12/05/16 16:59 11/30/16 18:12 Cefepime HCl/ Dextrose (Maxipime/D5W) 55 ml @ 110 mls/hr Q24H IV 11/30/16 21:00 12/07/16 20:59 12/01/16 21:05 Dextrose STAT PRN IV Hypoglycemia 11/30/16 17:00 12/30/16 16:59 Heparin Sodium (Porcine) (Heparin 5000 units/ml) 5,000 units EVERY 12 HOURS SUBQ 11/30/16 21:00 12/30/16 20:59 11/30/16 22:26 Insulin Aspart (NovoLOG) BEFORE MEALS AND HS SUBQ 11/30/16 21:00 12/30/16 20:59 12/02/16 11:29 Nitroglycerin (Ntg) 0.4 mg Q5M PRN SL Prn Chest Pain 11/30/16 17:00 12/30/16 16:59 Ondansetron HCl (Zofran) 4 mg Q6H PRN IVP Nausea & Vomiting 11/30/16 17:00 12/30/16 16:59 Polyethylene Glycol (Miralax) 17 gm DAILYPRN PRN ORAL Constipation 11/30/16 17:00 12/30/16 16:59 Promethazine HCl/ Codeine (Phenergan with Codeine) 5 ml Q4H PRN ORAL For Cough 11/30/16 17:00 12/30/16 16:59 Temazepam (Restoril) 15 mg HSPRN PRN ORAL Insomnia 11/30/16 17:00 12/07/16 16:59 Vancomycin HCl (Vanco rx to dose) 1 ea DAILY PRN MISC Per rx protocol 11/30/16 17:00 12/30/16 16:59 Vancomycin HCl/ Dextrose (Vancomycin/D5W) 275 ml @ 183.708 mls/hr Q24H IVPB 11/30/16 18:00 12/05/16 17:59 12/01/16 17:15 JEEVAN NESS Dec 02, 2016 13:29
--- NOTE | 2016-12-02 15:15 | Cardiology Report ---
APPROVED REPORT EXAM: Two-dimensional and M-mode echocardiogram with Doppler and color Doppler. INDICATION Syncope M-Mode DIMENSIONS IVSd0.7 (0.7-1.1cm)Left Atrium (MM)3.5 (1.6-4.0cm) LVDd5.4 (3.5-5.6cm)Aortic Root3.2 (2.0-3.7cm) PWd1.0 (0.7-1.1cm)Aortic Cusp Exc.2.0 (1.5-2.0cm) LVDs3.3 (2.5-4.0cm) PWs1.3 cm Normal left ventricular chamber size, systolic function and wall motion. Left ventricular ejection fraction estimated to be 60-65%. No evidence of left ventricular hypertrophy. Small anterior pericardial fat or effusion. All other cardiac chamber sizes are within normal limits. Focal aortic valve sclerosis with adequate cusp excursion Thickened mitral valve leaflets with normal excursion. Mitral annulus and aortic root calcification. Pulmonic valve not well visualized. Normal tricuspid valve structure. IVC is normal in size with physiologic collapse. A color flow and spectral Doppler study was performed and revealed: No aortic regurgitation. No mitral regurgitation. Left ventricular diastolic dysfunction grade 1. No tricuspid regurgitation.
--- NOTE | 2016-12-02 23:56 | Cardiology Progress Note ---
Assessment/Plan Assessment/Plan 1. Unwitnessed syncope. Orthostatics negative, echo shows normal LVEF. 2. History of diabetes mellitus. 3. History of hypertension. 4. History of hyperlipidemia. Subjective Subjective Sinus rhythm at 75. Objective Last 24 Hour Vital Signs Date Time Temp Pulse Resp B/P Pulse Ox O2 Delivery O2 Flow Rate FiO2 12/02/16 12:00 90 12/02/16 11:55 84 12/02/16 11:50 75 12/02/16 11:50 97.3 75 18 120/57 100 Nasal Cannula 2.0 12/02/16 08:36 97.0 87 18 138/71 96 Nasal Cannula 2.0 12/02/16 08:00 85 12/02/16 04:00 99 12/02/16 04:00 81 85 88 12/02/16 04:00 97.7 78 19 129/60 98 Nasal Cannula 2.0 12/02/16 00:00 97.4 80 20 148/75 98 Nasal Cannula 2.0 12/02/16 00:00 76 Intake and Output 12/01/16 12/02/16 19:00 07:00 Intake Total 875.000 ml Output Total 300 ml 700 ml Balance 575.000 ml -700 ml Intake Oral 600 ml IV Total 275.000 ml Output Urine Total 300 ml 700 ml # Voids 3 2D Echo: LVEF 60-65%, Grade I LVDD Laboratory Tests Test 12/02/16 06:50 White Blood Count 7.1 K/UL (4.8-10.8) Red Blood Count 4.04 M/UL (4.70-6.10) L Hemoglobin 13.4 G/DL (14.2-18.0) L Hematocrit 38.9 % (42.0-52.0) L Mean Corpuscular Volume 96 FL (80-99) Mean Corpuscular Hemoglobin 33.1 PG (27.0-31.0) H Mean Corpuscular Hemoglobin Concent 34.5 G/DL (32.0-36.0) Red Cell Distribution Width 12.0 % (11.6-14.8) Platelet Count 143 K/UL (150-450) L Mean Platelet Volume 6.9 FL (6.5-10.1) Neutrophils (%) (Auto) 67.0 % (45.0-75.0) Lymphocytes (%) (Auto) 21.1 % (20.0-45.0) Monocytes (%) (Auto) 8.7 % (1.0-10.0) Eosinophils (%) (Auto) 2.4 % (0.0-3.0) Basophils (%) (Auto) 0.9 % (0.0-2.0) Erythrocyte Sedimentation Rate 56 MM/HR (0-30) H Reticulocyte Count 0.9 % (0.0-2.0) Prothrombin Time 9.6 SEC (9.30-11.50) Prothromb Time International Ratio 0.9 (0.9-1.1) Activated Partial Thromboplast Time 28 SEC (23-33) Iron Level 104 ug/dL (59-158) Total Iron Binding Capacity 241 ug/dL (250-400) L Percent Iron Saturation 43 % (15-50) Unsaturated Iron Binding 137 ug/dL (112-346) Lactate Dehydrogenase 229 U/L (135-230) Carcinoembryonic Antigen 2.5 ng/mL Vitamin B12 Level 188 pg/mL (211-946) L Folate Pending Microbiology Date/Time Source Procedure Growth Status 11/30/16 15:10 Blood Blood Culture - Preliminary NO GROWTH AFTER 24 HOURS Resulted 11/30/16 15:00 Blood Blood Culture - Preliminary NO GROWTH AFTER 24 HOURS Resulted 12/01/16 13:00 Sputum Gram Stain - Final Resulted 12/01/16 13:00 Sputum Sputum Culture - Preliminary Resulted 12/01/16 18:50 Urine,Clean Catch Urine Culture - Preliminary NO GROWTH Resulted Objective HEENT: Atraumatic and normocephalic. Anicteric. Pupils are equal, round, and reactive to light and accommodation. Extraocular muscles intact. Dry mucosal membranes. NECK: JVP is less than 5 cm. No carotid bruits. Carotid upstrokes 2+ bilaterally. CARDIOVASCULAR: Normal S1 and S2. Regular rate and rhythm. No murmurs, gallops, or rubs. PMI is at fourth intercoastal space in the midclavicular line. LUNGS: Clear to auscultation bilaterally. ABDOMEN: Soft, nontender, and nondistended. No hepatosplenomegaly. Positive bowel sounds. EXTREMITIES: No evidence of edema, clubbing, or cyanosis. DAT HERNANDEZ Dec 02, 2016 23:56
[2016-12-03 11:11] LABS: BAND NEUTROPHILS % (MANUAL) 0 % (0-8); BASOPHILS % (MANUAL) 0 % (0-2); EOSINOPHILS % (MANUAL) 3 % (0-3); LYMPHOCYTES % (MANUAL) 27 % (20-45); NEUTROPHILS % (MANUAL) 62 % (45-75); PLATELET ESTIMATE DECREASED; PLATELET MORPHOLOGY NORMAL; TOTAL CELLS COUNTED 100
--- NOTE | 2016-12-03 12:00 | Consultation ---
DATE OF CONSULTATION: CONSULTING PHYSICIAN: Luke Garcia M.D. HISTORY OF PRESENT ILLNESS: This is an 86-year-old male with a history of multiple medical problems including arrhythmias, diabetes mellitus, CVA, severe protein-calorie malnutrition, debility, having cognitive impairment admitted for delirium and altered mental status. During the evaluation, the patient is presenting with waxing/waning consciousness, impairment of cognition. The patient is unable to understand process, communicate the importance of staying in the hospital. He also endorses impairment of memory as he is anxious and agitated. PAST PSYCHIATRIC HISTORY: Unknown. He has a history of delirium and has been treated with temazepam and Ativan in the past. PAST MEDICAL HISTORY: Significant for diabetes mellitus, hypertension, and hyperlipidemia. ALLERGIES: No known drug allergies. SUBSTANCE ABUSE HISTORY: No known history of illicit drug use or alcohol. MENTAL STATUS EXAMINATION: The patient is alert and oriented times to self. Mood is anxious. Affect is constricted. Congruent mood. Thought process is disorganized. Thought content, no suicidal, homicidal ideations, delusional. Cognition is impaired. ASSESSMENT: AXIS I: Delirium due to general medical condition. AXIS II: Deferred. AXIS III: As above. AXIS IV: Moderate. AXIS V: Global assessment of functioning is 20. PLAN: The patient will be started on low-dose of antipsychotics. The patient may not leave against medical advice. Luke Garcia M.D. DR: Nasreen JOB#: [id number] CC:
--- NOTE | 2016-12-03 12:06 | Discharge Summary ---
Discharge Summary Hospital Course Date of Admission Nov 30, 2016 at 15:50 Date of Discharge Dec 02, 2016 at 15:45 Admitting Diagnosis PNA/ syncope HPI Jolynn Mccray is a 86 year old male who was admitted on Nov 30, 2016 at 15:50 for Pnuemonia,Syncope Hospital Course [id number] Discharge Discharge Disposition Patient left AMA Discharge Diagnoses: Cecy Rivera NP Dec 03, 2016 12:06
--- NOTE | 2016-12-03 13:47 | Diagnostic Imaging Report ---
APPROVED REPORT CPT Code: 34079 Vascular Symptoms Syncope Doppler Spectral Velocity Analysis RightLeft RIGHT SIDE: CCA - Imaging reveals no significant plaque within the extracranial carotid arteries. The Doppler spectral flow analysis is within normal limits throughout the extracranial carotid arteries. VERTEBRAL - The vertebral artery is patent, without evidence of stenosis or steal. LEFT SIDE: CCA/BULB - Imaging reveals irregular, minimal plaque in the right carotid carotid arteries. VERTEBRAL - The vertebral artery is patent, without evidence of stenosis or steal.
--- NOTE | 2016-12-03 18:15 | Discharge Summary 2 SIG ---
DATE OF ADMISSION: 11/30/2016 DATE OF DISCHARGE: 12/02/2016 CONSULTANTS: 1. Mane Bustamante M.D. 2. Allan Null M.D. 3. Alvino Bernard M.D. BRIEF HOSPITAL COURSE: The patient is a 56-year-old male with history of hypertension, cardiomyopathy, CVA, and dementia, presented with chief complaint of falls x2. There was no loss of consciousness. On evaluation at ED, chest x-ray showed right lower lobe opacity and had mildly elevated creatinine and thrombocytopenia. He was admitted to telemetry for acute encephalopathy. Echocardiogram done showed ejection fraction of 60% to 65% with no evidence of left ventricular hypertrophy. Head CT showed no evidence of acute injury with subacute to chronic right parietal infarct and an old lacunar infarct. He was started on statins and aspirin and was given IV hydration. The patient underwent physical therapy and occupational therapy and was ordered to undergo a carotid duplex exam, however full treatment was not carried out as the patient signed out against medical advice. FINAL DIAGNOSES: 1. Unwitnessed syncope. 2. Acute metabolic encephalopathy. 3. Arrhythmia. 4. Diabetes. 5. Severe protein-calorie malnutrition. 6. Debility. 7. Lactic acidosis, was given vancomycin and cefepime. 8. History of subacute right parietal ischemic stroke. 9. 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 10. Abnormal gait. 11. Chronic low back pain. 12. Noncompliance, as the patient signed out against medical advice. Abeba Hobson M.D. I have been assigned to dictate discharge summary on this account and I was not involved in the patient's management. Cecy Rivera N.P. DR: FAUSTO JOB#: [id number] CC: [id number]
== END 2016-12-02 15:45 | disposition left against medical advice (07) | DRG 70 ==
LOC: EDBD 13:56 → EMR 15:07 → 2E 15:50 → EDBEDREQ 18:28
DX: G93.40 Encephalopathy, unspecified (principal); E43 Unspecified severe protein-calorie malnutrition; E87.2 Acidosis; E11.8 Type 2 diabetes mellitus with unspecified complications; D69.6 Thrombocytopenia, unspecified; F05 Delirium due to known physiological condition; R55 Syncope and collapse; I49.9 Cardiac arrhythmia, unspecified; Z86.73 Personal history of transient ischemic attack (TIA), and cerebral infarction without residual deficits; R26.9 Unspecified abnormalities of gait and mobility; M54.5 Low back pain; Z91.19 Patient's noncompliance with other medical treatment and regimen; N40.0 Benign prostatic hyperplasia without lower urinary tract symptoms
CPT/HCPCS: 36415; 70450; 71010; 80053; 80069; 81003; 82378; 82550; 82553; 82607; 82746; 82962; 83540; 83550; 83605; 83615; 84484; 85007; 85025; 85044; 85060; 85610; 85651; 85730; 87040; 87070; 87086; 87205; 93005; 93306; 93880; 94640; 94664; J1815; J7620